=== PATIENT | male | born 1980 | race Caucasian/White ===

== ENCOUNTER 2022-02-06 09:14 | Outpatient (CLI) | payer OTHER, SELFPAY | END 2022-02-06 09:15 | disposition home or self-care (01) | LOC: ANHSURGERY 09:17 | PROVIDERS: PCP Nurse Practitioner Adult Health; Visit Provider Surgery | DX: K40.90 Unilateral inguinal hernia, without obstruction or gangrene, not specified as recurrent (principal); Z01.818 Encounter for other preprocedural examination | CPT/HCPCS: 36415; 86850; 86900; 86901 ==

== ENCOUNTER 2022-02-08 00:54 | Day surgery (SDC) | payer OTHER, SELFPAY ==
[2022-02-01 16:05] VITALS: BMI 25.2
--- NOTE | 2022-02-01 16:29 | PC.NURSE ---
Report to the Outpatient Waiting Room, entrance under the green pavilion located off [facility], at time _0600 on date 02/08/22 OR Time: 0730_. - You and your visitor will be asked a series of questions to screen for COVID 19 for your protection. - Only one visitor is allowed at this time. - The patient visitor is requested to leave or wait in car when not with patient. - A mask is required within the hospital. Patients may have clear liquids (water, carbonated beverages, clear teas, apple juice) until 3 hours prior to surgery with a maximum of 20 ounces. - No food from midnight until time of surgery - Infants may have breast milk until 4 hours before surgery, formula 6 hours prior to surgery. - Children will be allowed to drink immediately following surgery. If applicable, please bring a bottle or sippy cup to assist with drinking. Juice, water, soda, and popsicles are readily available. For infants on formula, please bring formula the day of surgery. Pacifiers are allowed. Take the following medications with a SIP of water the morning of surgery: Medications to discontinue per physician _multivitamin_ Date to take last dose 02/05/22 Please no make-up, nail south korean, hairspray, perfume, deodorant, or body powder the day of surgery. No jewelry (including any body piercings) or valuables the day of surgery, leave them at home. Please take a shower or bath the night before, or the morning of, surgery with an antibacterial soap. Wear comfortable, loose fitting clothing. Children are encouraged to wear pajamas. - Jewelry must be removed prior to entering the operating room. Rings and piercings that are not removed may be cut off. - The hospital will not accept responsibility for valuables. - Please leave all valuables, including medications, at home the day of surgery. If you are going home after surgery, a licensed reach lift truck driver must drive you home. - NO public transportation without another adult. - We recommend that an adult stay with you for 24 hours following discharge. - We also recommend that you do not drive, make important decision, drink alcoholic beverages, or take any drugs that were not prescribed by your health care provider for at least 24 hours after your discharge time. For Pediatric surgeries, we recommend two adults accompany the child home (only one inside the building at this time). Follow any additional instructions given to you from your surgeon. If you or anyone in your household have experienced Covid symptoms in the past week, please notify your surgeon or the nurse liaison at the phone number below for possible testing. Telephone instructions given to Rodney Kamara and asked if any additional questions and then verbalized understanding. Patient advised to call surgeon office or pre surgery nurse liaison [phone] if any additional questions.
--- NOTE | 2022-02-07 13:10 | P.PNAN_ITS ---
Anes - Initial Pre Proc Eval Procedure: Operation Date: 02/08/22 07:30 Proposed Procedures p Robotic Assisted Right Inguinal Hernia Repair with Mesh - Bianka Guzman MD Date/Time: 02/07/22 13:10 Surgeon: Bianka Guzman MD Pre Op Diagnosis: right inguinal hernia Patient Data Age: 41 Gender: M Height: 1.88 m Weight: 89 kg Allergies Allergy/AdvReac Type Severity Reaction Status Date / Time No Known Allergies Allergy Verified 02/08/22 06:50 Home Medications Medication Instructions Recorded Confirmed Type golimumab 12.5 mg/mL intravenous See Rx Instructions .Route .COMPLEX 01/23/22 02/08/22 History solution (Simponi ARIA) multivit with minerals-iron 18 400 tablet PO DAILY 02/01/22 02/08/22 History mg-folic ac 400 mcg-vit K 25 mcg tablet (Adults Multivitamin) Patient hx anesthesia problems: none Family hx anesthesia problems: none Results Review: All pre-operative results and documents have been reviewed as part of the pre- operative evaluation. [facility] Past Medical History Medical History (Updated 02/07/22 @ 13:11 by Anthony Morgan MD) Ankylosing spondylitis Arthritis History of bronchitis IBS (irritable bowel syndrome) Surgical History Surgical History History of hand surgery R hand surgery - pins (2008) History of surgery on wrist history of left wrist surgery 2016 Family History Family History Father Hypertension Cerebrovascular accident Mother Family history of malignant neoplasm of ovary Family history of malignant neoplasm of uterus Unknown Diabetes mellitus Heart disease Cerebrovascular accident Hypertension Cancer Social History Social History Smoking status: Never smoker Alcohol intake: never Substance use: never Living arrangements: with family Spiritual care concerns: No Anes - Eval Final PreProcedure Day of Procedure 02/07/22 13:10 Patient weight: normal Heart: regular rate and rhythm Lungs: clear to auscultation and normal air movement Airway: Mallampati scale class II Neurological: alert and oriented Last oral intake: >/= 8 hours ASA classification: III Emergent: no Anesthetic plan: proceed Anesthesia type and monitoring: general ETT Results Review: All pre-operative results and documents have been reviewed as part of the pre- operative evaluation. Informed Consent: The patient's anesthetic plan and its attendant risks and benefits were discussed with the patient/family/POA. Questions were solicited and answers provided to the satisfaction of the patient/family/POA.
[2022-02-08] VITALS (9 sets, daily range): BP systolic 115–128; BP diastolic 47–87; PULSE 50–80; RESP 12–18; TEMP 36.2–36.4; O2SAT 97–100
[2022-02-08] MEDS: ACETAMINOPHEN 500 MG TABLET 1000 MG PO (06:35)
[2022-02-08] MEDS: LACTATED RINGERS 1,000 ML 30 ML IV CONT ×2 (06:36→10:17)
[2022-02-08] MEDS: KETOROLAC 15 MG/ML VIAL (*BKC) IV PUSH (06:40)
--- NOTE | 2022-02-08 07:17 | WPDHPUPDATE1 ---
History and Physical Update Update Date/Time: 02/08/22 07:17 History and Physical has been reviewed, including an updated exam of the patient. There are NO changes in the patient's condition. Risks, benefits, and alternatives have been discussed and questions answered. Patient agrees to proceed with procedure.
[2022-02-08] MEDS: ceFAZolin 2 GM/D5W 50 ML 2 GM/50 ML BAG IVPB (07:29)
--- NOTE | 2022-02-08 08:58 | W.PM.PROC2 ---
Procedure Note - Detailed Date of Procedure 02/08/22 Pre-op Diagnosis right inguinal hernia Post-op Diagnosis Same Procedure Performed robotic assisted right inguinal hernia repair with mesh Surgeon Bianka Guzman MD Anesthesia General Indications 41 year old male with progressively worsening right inguinal hernia over the last few weeks Findings pantaloon right inguinal hernia Description of Procedure Patient was brought into the operating room and placed in the supine position. After adequate induction of general anesthesia, the patient was prepped and draped in normal sterile fashion. A time-out was then done to verify the patient's identity, as well as the procedure being performed. Began by making a 8 mm incision in the supraumbilical region, a Veress needle was then placed into the peritoneal cavity. CO2 gas was then insufflated and after adequate pneumoperitoneum was achieved, the Veress needle was removed. I then placed an 8 mm trocar through this incision. I then placed the endoscope through this trocar site and under direct visualization placed 2 further 8 mm ports in the right and left mid abdomen. The [email or web address] robot was then docked to the 3 trocar sites. I then scrubbed out and went to the robotic console. Upon examining the pelvis, it was noted that the patient had a moderate right inguinal hernia. The left side was examined and no hernia defect was noted. I began by making a preperitoneal flap approximately 6 cm superior to the defect. This flap was carried medially past the umbilical ligaments in laterally to the transversalis. It then began dissection of my medial compartment taking this down to the pubic tubercle. There was noted to be a small direct defect and this was dissected and reduced. I then began the lateral dissection taking this down to the transversalis fascia. Once these compartments were achieved, I began dissection around the cord structures. A moderate indirect hernia was noted at this point. Using careful dissection, was able to reduce indirect hernia sac off the cord structures. Once this was adequately done, I went ahead and placed a large piece of 3D Max mesh into the abdominal cavity. The mesh was carefully positioned, centering the center of the mesh over the indirect defect. Once this was done, was very satisfied with our repair. Using 3-0 Vicryl sutures, I tacked the mesh medially to Obey's ligament. Two lateral sutures were placed from the mesh to the transversalis fascia. I then closed the peritoneal flap with a running 2.0 V Lock suture. The abdomen was then desufflated, and all ports were removed. All incisions were then closed with the 4.0 monocryl suture. Dermabond was placed on each wound. The patient tolerated the procedure well, was extubated in the operating room postoperatively, and will now be transferred to the recovery room in stable condition. Implants large 3DMax mesh Estimated Blood Loss 10 Drains No Packing No Pathology None sent Complications No immediate complications Condition Stable Disposition PACU [facility] Billing Surgery - Charge Forward: Surgery Billing
[2022-02-08] MEDS: oxyCODONE HCL (*CRX) 5 MG TAB IR PO (10:15)
== END 2022-02-08 11:41 | disposition home or self-care (01) ==
PROVIDERS: PCP Nurse Practitioner Adult Health; Visit Provider Surgery
PROC: 8E0Y4CZ Robotic Assisted Procedure of Lower Extremity, Percutaneous Endoscopic Approach (ICD-10-PCS; CPT 49650; principal; 2022-02-08 07:30)
DX: K40.90 Unilateral inguinal hernia, without obstruction or gangrene, not specified as recurrent (principal)
CPT/HCPCS: 49650; S2900; 36415; 86850; 86900; 86901; A9270; C1781; J0690; J1100; J1170; J1885; J2250; J2405; J2704; J2710; J3010; J7030; J7120